=== PATIENT | male | born 1955 ===

== ENCOUNTER 2017-11-27 17:08 | Inpatient (IN) ==
[~2017-11-27 17:08] MED LIST: Etomidate Inj 40 MG/20 ML Vial IV.PUSH ONE; Lidocaine 2% 100 MG/5 ML Syringe IV.PUSH ONE; Midazolam Inj 5 MG/ML 1 ML Vial IV.PUSH ONE; Succinylcholine Inj 100 MG/5 ML Syringe IV.PUSH ONE
[2017-11-27] MEDS ORDERED: Propofol 1000 mg/100 ml Inj 1,000 MG/100 ML BOTTLE ONE (17:19)
[2017-11-27] MEDS ORDERED: Post-op Orders (for Pharmacy) OTHER ONE (17:25)
[2017-11-27] MEDS ORDERED: Naloxone Inj 0.4 MG/ML Vial IV.PUSH PRN (17:25)
[2017-11-27] MEDS ORDERED: Bisacodyl 10 MG Supp RECTAL PRN (17:25)
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
[2017-11-27] MEDS ORDERED: fentaNYL 10 mcg/mL Premix Drip 2,500 MCG/250 ML BAG IV.SIG PRN (17:29)
[2017-11-27 17:34] LABS: Baso # (Auto) 0.1 th/mm3 (0.0-0.2); Baso % (Auto) 0.6 % (0.0-2.0); Eos # (Auto) 0.3 th/mm3 (0.0-0.4); Eos % (Auto) 2.5 % (0.0-4.0); Hematocrit 42.2 % (39.0-51.0); Hemoglobin 14.2 gm/dL (13.0-17.0); Lymph % (Auto) 25.4 % (9.0-44.0); Mean Corpuscular HGB Conc 33.6 % (32.0-36.0); Mean Corpuscular Volume 89.4 fL (80.0-100.0); Mean Platelet Volume 7.8 fL (7.0-11.0); Mono % (Auto) 8.1 % (0.0-8.0); Neut # (Auto) 7.5 th/mm3 (1.8-7.7); Neut % (Auto) 63.4 % (16.0-70.0); Platelet Count 275 th/mm3 (150-450); Red Blood Count 4.72 mil/mm3 (4.50-5.90); Red Cell Distribution Width 13.4 % (11.6-17.2); White Blood Count 11.8 th/mm3 (4.0-11.0)
[2017-11-27 17:44] LABS: Activated Partial Thrombo Time 21.4 sec (24.3-30.1); Prothrombin Time 10.4 sec (9.8-11.6)
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
[2017-11-27] MEDS ORDERED: levETIRAcetam 500mg/100mL Inj 100 ML IV.SIG SCH (18:00)
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
[2017-11-27] MEDS: Propofol 1000 mg/100 ml Inj 1,000 MG/100 ML BOTTLE IV.CONT PRN (19:00)
[2017-11-27] MEDS ORDERED: ceFAZolin Inj 2,000 MG in Sodium Chlor 0.9% Inj 100 ML IV.SIG ONE (19:00)
[2017-11-27] MEDS: Pantoprazole Inj 40 MG Vial IV.PUSH SCH (19:08)
[2017-11-27] MEDS: Sod Chloride 0.9% Inj 1,000 ML IV.CONT SCH (19:31)
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
[2017-11-27 20:12] LABS: ABG PCO2 36 mmHg (38-42); ABG PO2 162 mmHg (61-120)
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
--- NOTE | 2017-11-27 22:20 | MP ---
cc: Alvin Saldana MD DATE OF OPERATION: 11/27/2017 PREOPERATIVE DIAGNOSIS: Massive head trauma, ventilatory dependence. POSTOPERATIVE DIAGNOSIS: Massive head trauma, ventilatory dependence. PROCEDURE PERFORMED: Triple lumen placement left jugular. SURGEON: Alvin Saldana MD ANESTHESIA: Xylocaine and sedation. ESTIMATED BLOOD LOSS: 5 mL DESCRIPTION OF PROCEDURE: The patient was prepped and draped in usual fashion. The area was infiltrated with 1% Xylocaine. Needle was inserted left subclavian the left subclavian area, however, due to the previous clavicular fracture, I could not pass the needle between the clavicle and the first rib, so this approach was abandoned. The area is now infiltrated with 1% Xylocaine and junction of the sternocleidomastoid head, and then needle inserted in the left jugular vein. Through the needle, the J-wire is guided. Over the J-wire, a dilator and triple lumen are placed. The triple lumen is sutured in place with 2-0 silk. Chest x-ray pending. MD MELANIE Bar/paco , 07:47 PM , 07:51 PM
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
[2017-11-28] MEDS: Senna/Docusate Sodium 8.6/50 MG Tablet PO SCH ×3 (01:06→21:20)
[2017-11-28] MEDS: Propofol 1000 mg/100 ml Inj 1,000 MG/100 ML BOTTLE IV.CONT PRN ×5 (02:19→23:14)
[2017-11-28] MEDS ORDERED: Sod Chloride 0.9% Inj 2,000 ML IV.SIG ONE (04:00)
[2017-11-28] MEDS: Sod Chloride 0.9% Inj 1,000 ML IV.CONT SCH ×3 (05:32→18:21)
[2017-11-28] MEDS ORDERED: Potassium Chloride 25 MEQ Effervescent Tablet PO PRN (06:03)
[2017-11-28] MEDS ORDERED: Magnesium Sulfate Inj 2 GM in Sodium Chlor 0.9% Inj 96 ML IV.SIG PRN (06:03)
[2017-11-28] MEDS ORDERED: Potassium Chlor 20 mEq Premix 20 MEQ/100 ML PIGGYBACK IV.SIG PRN (06:03)
[2017-11-28] MEDS ORDERED: Sodium Phosphate Inj 30 MMOL in Sodium Chlor 0.9% Inj 250 ML IV.SIG PRN (06:03)
[2017-11-28] MEDS ORDERED: Magnesium Oxide 400 MG Tablet PO PRN (06:03)
[2017-11-28] MEDS ORDERED: Potassium Phosphate Inj 30 MMOL in Sodium Chlor 0.9% Inj 250 ML IV.SIG PRN (06:03)
[2017-11-28] MEDS ORDERED: Potassium Phosphate 500 MG Soluble Tablet PO PRN ×2 (06:03)
[2017-11-28] MEDS ORDERED: Magnesium Sulfate Inj 4 GM in Sodium Chlor 0.9% Inj 92 ML IV.SIG PRN (06:03)
[2017-11-28] MEDS ORDERED: Potassium Chlor 40 mEq Premix 40 MEQ/100 ML PIGGYBACK IV.SIG PRN ×2 (06:03)
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
[2017-11-28 06:25] LABS: ABG Base Excess -3.6 mmol/L (-2-2); ABG PCO2 36 mmHg (38-42); ABG PO2 109 mmHg (61-120)
--- NOTE | 2017-11-28 06:35 | XR ---
EXAM DATE: 11/28/2017 6:32 AM EDT AGE/SEX: 89 years / Male INDICATIONS: Evaluate for pneumothorax. CLINICAL DATA: This is the patient's initial encounter. Patient reports that signs and symptoms have been present for 1 day and indicates a pain score of Nonresponsive. MEDICAL/SURGICAL HISTORY: Non-responsive. Non-responsive. [place] [facility] [place]. . FINDINGS: The ET tube, NG tube and left subclavian line are in good position. The heart size is normal. The yosef gs are grossly clear. A pneumothorax is not seen. CONCLUSION: The tubes and lines are well placed. Electronically signed by: Carlos Mccain MD 11/28/2017 6:34 AM EDT
[2017-11-28] MEDS ORDERED: Lidocaine 1% Inj 50 ML Vial ONE (06:42)
[2017-11-28 06:59] LABS: Baso % (Auto) 0.2 % (0.0-2.0); Eos % (Auto) 0.1 % (0.0-4.0); Hematocrit 30.1 % (39.0-51.0); Hemoglobin 10.4 gm/dL (13.0-17.0); Lymph % (Auto) 8.7 % (9.0-44.0); Mean Corpuscular HGB Conc 34.6 % (32.0-36.0); Mean Corpuscular Hemoglobin 30.9 pg (27.0-34.0); Mean Corpuscular Volume 89.3 fL (80.0-100.0); Mean Platelet Volume 7.9 fL (7.0-11.0); Mono # (Auto) 1.1 th/mm3 (0.0-0.9); Mono % (Auto) 10.4 % (0.0-8.0); Neut # (Auto) 8.8 th/mm3 (1.8-7.7); Neut % (Auto) 80.6 % (16.0-70.0); Platelet Count 183 th/mm3 (150-450); Red Blood Count 3.37 mil/mm3 (4.50-5.90); Red Cell Distribution Width 13.2 % (11.6-17.2); White Blood Count 10.9 th/mm3 (4.0-11.0)
[2017-11-28 07:10] LABS: Carbon Dioxide 23.4 meq/L (21.0-32.0); Potassium 4.1 meq/L (3.5-5.1)
[2017-11-28 07:24] LABS: Total Protein 5.3 g/dL (6.4-8.2)
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
[2017-11-28] MEDS: Chlorhexidine 0.12% Oral Kit 15 ML UDC OROPHARYNG SCH ×2 (08:39→20:00)
[2017-11-28] MEDS: Oral Hygiene Kit OROPHARYNG SCH ×2 (12:19→16:20)
[2017-11-28] MEDS ORDERED: levETIRAcetam 500mg/100mL Inj 100 ML IV.SIG SCH (15:00)
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
[2017-11-28] MEDS: Pantoprazole Inj 40 MG Vial IV.PUSH SCH (18:21)
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
--- NOTE | 2017-11-28 18:38 | CT ---
EXAM DATE: 11/28/2017 6:24 PM EDT AGE/SEX: 62 years / Male INDICATIONS: Trauma bleed CLINICAL DATA: This is the patient's initial encounter. Patient reports that signs and symptoms have been present for 1 day and indicates a pain score of Nonresponsive. MEDICAL/SURGICAL HISTORY: Cardiovascular disease. Coronary artery stent. RADIATION DOSE: 11.24 CTDI (mGy) ; Combined studies COMPARISON: [facility], CTA HEAD W CONTRAST W 3D, 11/28/2017. . TECHNIQUE: Volumetric scanning was performed using a multirow detector CT scanner during bolus infus ion of 75 ml Omnipaque 350 (iohexol) nonionic water-soluble contrast as a cumulative dose for multip le exams. The data was postprocessed with a variety of visualization algorithms including full-volu me maximum intensity projection, multiplanar sliding thin-slab reformation, curved-planar reformation , and surface-rendering techniques. Using automated exposure control and adjustment of the mA and/or kV according to patient size, radiation dose was kept as low as reasonably achievable to obtain opti mal diagnostic quality images. DICOM format image data is available electronically for review and co mparison. Percent stenosis is calculated using the diameter of the stenotic region over the diameter of the nor mal distal internal carotid artery. FINDINGS: Aortic Arch: There is a three-vessel origin of the great vessels from the aorta. No evidence of ost ial narrowing Right Carotid: The common carotid artery is intact. The carotid bulb has a normal configuration wit hout ulceration or narrowing. The internal carotid artery lumen is smooth without stenosis. The ext ernal carotid artery is intact. Left Carotid: The common carotid artery is intact. The carotid bulb has a normal configuration with out ulceration or narrowing. The internal carotid artery lumen is smooth without stenosis. The exte rnal carotid artery is intact. Vertebrals: The vertebral arteries have a symmetric diameter. No stenotic lesions are seen. Miscellaneous: Subcentimeter hypodensities are identified in both lobes of the thyroid CONCLUSION: 1. Subcentimeter hypodensities in both lobes of the thyroid. Findings likely represent multinodular goiter. If clinically warranted, ultrasound could be performed for further characterization, however. 2. Otherwise negative. Arch and cervical vessels are patent with no significant stenosis. Electronically signed by: Young Corrales MD 11/28/2017 6:37 PM EDT
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
[2017-11-29] MEDS: Oral Hygiene Kit OROPHARYNG SCH ×4 (00:30→15:39)
[2017-11-29 04:06] LABS: Baso % (Auto) 0.3 % (0.0-2.0); Eos # (Auto) 0.1 th/mm3 (0.0-0.4); Eos % (Auto) 1.3 % (0.0-4.0); Hematocrit 28.9 % (39.0-51.0); Hemoglobin 9.9 gm/dL (13.0-17.0); Lymph # (Auto) 1.2 th/mm3 (1.0-4.8); Lymph % (Auto) 13.5 % (9.0-44.0); Mean Corpuscular HGB Conc 34.3 % (32.0-36.0); Mean Corpuscular Hemoglobin 30.7 pg (27.0-34.0); Mean Corpuscular Volume 89.5 fL (80.0-100.0); Mean Platelet Volume 7.7 fL (7.0-11.0); Mono # (Auto) 0.8 th/mm3 (0.0-0.9); Mono % (Auto) 8.8 % (0.0-8.0); Neut # (Auto) 6.8 th/mm3 (1.8-7.7); Neut % (Auto) 76.1 % (16.0-70.0); Platelet Count 164 th/mm3 (150-450); Red Blood Count 3.22 mil/mm3 (4.50-5.90); Red Cell Distribution Width 13.4 % (11.6-17.2); White Blood Count 8.9 th/mm3 (4.0-11.0)
[2017-11-29] MEDS: Propofol 1000 mg/100 ml Inj 1,000 MG/100 ML BOTTLE IV.CONT PRN ×4 (04:27→21:47)
[2017-11-29 04:30] LABS: Anion Gap 9 meq/L (5-15)
[2017-11-29 04:35] LABS: Blood Urea Nitrogen 8 mg/dL (7-18); Calcium 7.3 mg/dL (8.5-10.1); Carbon Dioxide 22.8 meq/L (21.0-32.0); Chloride 112 meq/L (98-107); Glomerular Filtration Rate Greater Than 89 mL/min (>89); Glucose,Random 97 mg/dL (74-106); Potassium 3.3 meq/L (3.5-5.1); Sodium 144 meq/L (136-145)
[2017-11-29 04:50] LABS: Total Protein 5.4 g/dL (6.4-8.2)
[2017-11-29 06:06] LABS: ABG Base Excess -1.6 mmol/L (-2-2); ABG PCO2 38 mmHg (38-42); ABG PO2 95 mmHg (61-120)
--- NOTE | 2017-11-29 06:06 | XR ---
EXAM DATE: 11/29/2017 5:49 AM EDT AGE/SEX: 62 years / Male INDICATIONS: Follow up trauma alert. Evaluate for pneumothorax. CLINICAL DATA: This is the patient's subsequent encounter. Patient reports that signs and symptoms h ave been present for 3 days and indicates a pain score of Nonresponsive. MEDICAL/SURGICAL HISTORY: Non-responsive. Non-responsive. COMPARISON: C, CHEST 1V SINGLE AP, 11/28/2017. . FINDINGS: The ET tube, NG tube, and left internal jugular central lines are well placed. The heart size is norm al. There is increased density at the medial right base. The left lung is grossly clear. A pneumothor ax is not seen. There continues to be a left-sided chest tube in place. CONCLUSION: Mild atelectasis or consolidation at the medial right base. Left chest tube without a pneumothorax seen. Electronically signed by: Carlos Mccain MD 11/29/2017 6:04 AM EDT
[2017-11-29] MEDS: fentaNYL 10 mcg/mL Premix Drip 2,500 MCG/250 ML BAG IV.SIG PRN (06:45)
[2017-11-29] MEDS: Sod Chloride 0.9% Inj 1,000 ML IV.CONT SCH ×2 (06:51→13:06)
[2017-11-29] MEDS: Chlorhexidine 0.12% Oral Kit 15 ML UDC OROPHARYNG SCH ×2 (08:30→20:56)
[2017-11-29] MEDS: Senna/Docusate Sodium 8.6/50 MG Tablet PO SCH ×2 (08:30→20:56)
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
--- NOTE | 2017-11-29 11:54 | MG ---
cc: Lars Vidal MD, PhD AKA:REINIER HURT EEG 18-2012 TECHNIQUE: A 17-channel EEG. DESCRIPTION: The background rhythm reveals slowing in the delta frequency as well as theta frequencies, ranging from 3 Hz to 6 Hz. Amplitude is roughly 20-30 microvolts. There are no epileptiform discharges. No lateralizing features are identified. There is occasional muscle artifact. Photic stimulation was done with no significant driving response. INTERPRETATION: Abnormal study consistent with a diffuse encephalopathy. Lars Vidal MD, PhD KATHERIN/surinder , 05:44 PM , 05:49 PM
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
[2017-11-29] MEDS: Pantoprazole Inj 40 MG Vial IV.PUSH SCH (18:17)
[2017-11-30] MEDS: Propofol 1000 mg/100 ml Inj 1,000 MG/100 ML BOTTLE IV.CONT PRN ×4 (05:00→22:54)
[2017-11-30 05:55] LABS: Baso % (Auto) 0.4 % (0.0-2.0); Eos # (Auto) 0.2 th/mm3 (0.0-0.4); Eos % (Auto) 2.1 % (0.0-4.0); Hematocrit 29.3 % (39.0-51.0); Hemoglobin 9.9 gm/dL (13.0-17.0); Lymph # (Auto) 1.1 th/mm3 (1.0-4.8); Lymph % (Auto) 12.6 % (9.0-44.0); Mean Corpuscular HGB Conc 33.9 % (32.0-36.0); Mean Corpuscular Hemoglobin 30.4 pg (27.0-34.0); Mean Corpuscular Volume 89.7 fL (80.0-100.0); Mean Platelet Volume 7.8 fL (7.0-11.0); Mono # (Auto) 0.7 th/mm3 (0.0-0.9); Mono % (Auto) 8.1 % (0.0-8.0); Neut # (Auto) 6.7 th/mm3 (1.8-7.7); Neut % (Auto) 76.8 % (16.0-70.0); Platelet Count 172 th/mm3 (150-450); Red Blood Count 3.26 mil/mm3 (4.50-5.90); Red Cell Distribution Width 12.9 % (11.6-17.2); White Blood Count 8.8 th/mm3 (4.0-11.0)
[2017-11-30 06:04] LABS: ABG Base Excess 0.3 mmol/L (-2-2); ABG PCO2 38 mmHg (38-42); ABG PO2 107 mmHg (61-120)
[2017-11-30 06:16] LABS: Anion Gap 8 meq/L (5-15); Blood Urea Nitrogen 9 mg/dL (7-18); Calcium 7.9 mg/dL (8.5-10.1); Carbon Dioxide 25.2 meq/L (21.0-32.0); Chloride 111 meq/L (98-107); Glomerular Filtration Rate Greater Than 89 mL/min (>89); Glucose,Random 122 mg/dL (74-106); Potassium 3.7 meq/L (3.5-5.1); Sodium 144 meq/L (136-145)
[2017-11-30] MEDS ORDERED: SODIUM CHLORIDE IV.SIG SCH (06:30)
[2017-11-30] MEDS ORDERED: SODIUM CHLOR 0.9% IV.SIG SCH (06:30)
[2017-11-30] MEDS: Oral Hygiene Kit OROPHARYNG SCH ×4 (07:32→17:40)
[2017-11-30] MEDS: Senna/Docusate Sodium 8.6/50 MG Tablet PO SCH ×2 (08:36→21:24)
[2017-11-30] MEDS: Chlorhexidine 0.12% Oral Kit 15 ML UDC OROPHARYNG SCH ×2 (08:36→21:24)
[2017-11-30] MEDS: Sod Chloride 0.9% Inj 1,000 ML IV.CONT SCH (12:41)
[2017-11-30] MEDS: Propranolol 10 MG Tablet PO SCH ×2 (13:28→21:24)
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
[2017-11-30] MEDS: Pantoprazole Inj 40 MG Vial IV.PUSH SCH (17:40)
[2017-11-30] MEDS: fentaNYL 10 mcg/mL Premix Drip 2,500 MCG/250 ML BAG IV.SIG PRN (17:42)
[2017-12-01] MEDS: Oral Hygiene Kit OROPHARYNG SCH ×4 (00:26→15:55)
[2017-12-01] MEDS ORDERED: Sod Chloride 0.9% Inj 1,000 ML IV.SIG SCH (00:30)
[2017-12-01] MEDS: Propofol 1000 mg/100 ml Inj 1,000 MG/100 ML BOTTLE IV.CONT PRN ×5 (02:19→21:13)
[2017-12-01 03:09] LABS: Baso % (Auto) 0.3 % (0.0-2.0); Eos # (Auto) 0.3 th/mm3 (0.0-0.4); Eos % (Auto) 3.1 % (0.0-4.0); Hematocrit 29.8 % (39.0-51.0); Hemoglobin 9.9 gm/dL (13.0-17.0); Lymph # (Auto) 1.3 th/mm3 (1.0-4.8); Lymph % (Auto) 14.8 % (9.0-44.0); Mean Corpuscular HGB Conc 33.1 % (32.0-36.0); Mean Corpuscular Volume 90.6 fL (80.0-100.0); Mono # (Auto) 0.7 th/mm3 (0.0-0.9); Mono % (Auto) 8.5 % (0.0-8.0); Neut # (Auto) 6.4 th/mm3 (1.8-7.7); Neut % (Auto) 73.3 % (16.0-70.0); Platelet Count 208 th/mm3 (150-450); Red Blood Count 3.29 mil/mm3 (4.50-5.90); Red Cell Distribution Width 13.5 % (11.6-17.2); White Blood Count 8.7 th/mm3 (4.0-11.0)
[2017-12-01 03:40] LABS: Anion Gap 6 meq/L (5-15); Blood Urea Nitrogen 10 mg/dL (7-18); Calcium 7.7 mg/dL (8.5-10.1); Carbon Dioxide 27.5 meq/L (21.0-32.0); Chloride 112 meq/L (98-107); Glomerular Filtration Rate Greater Than 89 mL/min (>89); Glucose,Random 115 mg/dL (74-106); Potassium 3.8 meq/L (3.5-5.1); Sodium 145 meq/L (136-145)
[2017-12-01] MEDS: Propranolol 10 MG Tablet PO SCH ×3 (05:33→21:12)
[2017-12-01 06:12] LABS: ABG Base Excess 0.2 mmol/L (-2-2); ABG PCO2 38 mmHg (38-42); ABG PO2 106 mmHg (61-120)
[2017-12-01] MEDS: Chlorhexidine 0.12% Oral Kit 15 ML UDC OROPHARYNG SCH ×2 (10:01→20:07)
[2017-12-01] MEDS: Senna/Docusate Sodium 8.6/50 MG Tablet PO SCH ×2 (10:02→20:13)
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
[2017-12-01] MEDS: Sod Chloride 0.9% Inj 1,000 ML IV.CONT SCH (15:14)
[2017-12-01] MEDS: Heparin - SQ 10,000 UNITS/ML Vial SQ SCH ×2 (15:14→21:12)
[2017-12-01] MEDS: fentaNYL 10 mcg/mL Premix Drip 2,500 MCG/250 ML BAG IV.SIG PRN (15:15)
[2017-12-01] MEDS: Pantoprazole Inj 40 MG Vial IV.PUSH SCH (17:56)
[2017-12-02] MEDS ORDERED: Sod Chloride 0.9% Inj 1,000 ML IV.SIG SCH (00:15)
[2017-12-02] MEDS: Vancomycin Inj 1,000 MG in Sodium Chlor 0.9% Inj 250 ML IV.SIG SCH (00:26)
[2017-12-02] MEDS: Oral Hygiene Kit OROPHARYNG SCH ×4 (01:12→17:50)
[2017-12-02] MEDS: Piperacil/Tazo 4.5 GM Premix 4.5 GM/100 ML BAG IV.SIG SCH ×4 (01:12→20:06)
[2017-12-02] MEDS: Propofol 1000 mg/100 ml Inj 1,000 MG/100 ML BOTTLE IV.CONT PRN ×6 (01:13→21:45)
[2017-12-02] MEDS ORDERED: Piperacil/Tazo 3.375 GM Premix 50 ML IV.SIG SCH (02:00)
[2017-12-02 04:39] LABS: Baso % (Auto) 0.2 % (0.0-2.0); Eos # (Auto) 0.1 th/mm3 (0.0-0.4); Eos % (Auto) 0.7 % (0.0-4.0); Hematocrit 27.6 % (39.0-51.0); Hemoglobin 9.1 gm/dL (13.0-17.0); Lymph # (Auto) 1.2 th/mm3 (1.0-4.8); Lymph % (Auto) 7.8 % (9.0-44.0); Mean Corpuscular HGB Conc 32.8 % (32.0-36.0); Mean Corpuscular Hemoglobin 29.9 pg (27.0-34.0); Mean Platelet Volume 7.9 fL (7.0-11.0); Mono # (Auto) 1.3 th/mm3 (0.0-0.9); Neut # (Auto) 12.2 th/mm3 (1.8-7.7); Neut % (Auto) 82.3 % (16.0-70.0); Platelet Count 201 th/mm3 (150-450); Red Blood Count 3.04 mil/mm3 (4.50-5.90); Red Cell Distribution Width 13.2 % (11.6-17.2); White Blood Count 14.8 th/mm3 (4.0-11.0)
[2017-12-02 05:05] LABS: Anion Gap 8 meq/L (5-15); Blood Urea Nitrogen 13 mg/dL (7-18); Calcium 7.4 mg/dL (8.5-10.1); Carbon Dioxide 27.1 meq/L (21.0-32.0); Chloride 109 meq/L (98-107); Glomerular Filtration Rate Greater Than 89 mL/min (>89); Glucose,Random 109 mg/dL (74-106); Potassium 3.8 meq/L (3.5-5.1); Sodium 144 meq/L (136-145)
[2017-12-02 05:22] LABS: Total Protein 5.4 g/dL (6.4-8.2)
[2017-12-02] MEDS: fentaNYL 10 mcg/mL Premix Drip 2,500 MCG/250 ML BAG IV.SIG PRN ×2 (05:35→15:49)
[2017-12-02] MEDS: Heparin - SQ 10,000 UNITS/ML Vial SQ SCH ×3 (05:36→21:55)
[2017-12-02] MEDS: Propranolol 10 MG Tablet PO SCH ×3 (05:36→21:55)
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
[2017-12-02] MEDS: Chlorhexidine 0.12% Oral Kit 15 ML UDC OROPHARYNG SCH ×2 (09:12→20:07)
[2017-12-02] MEDS ORDERED: Sod Chloride 0.9% Inj 1,000 ML IV.SIG ONE (09:43)
[2017-12-02] MEDS ORDERED: Bisacodyl 10 MG Supp RECTAL ONE (10:00)
[2017-12-02] MEDS: Senna/Docusate Sodium 8.6/50 MG Tablet PO SCH ×2 (10:36→20:07)
[2017-12-02] MEDS ORDERED: Sodium Chloride 23.4% Inj 120 MEQ in Syringe/Bag 1 EACH IV.SIG ONE ×2 (11:00→12:00)
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
[2017-12-02] MEDS ORDERED: Sodium Chloride 23.4% Inj 240 MEQ in Syringe/Bag 1 EACH IV.SIG ONE ×2 (13:00→18:00)
[2017-12-02] MEDS: Sod Chloride 0.9% Inj 1,000 ML IV.CONT SCH (13:07)
[2017-12-02] MEDS: Pantoprazole Inj 40 MG Vial IV.PUSH SCH (17:52)
--- NOTE | 2017-12-02 21:43 | MG ---
cc: Pedrito Bush MD ELECTROENCEPHALOGRAM RECORD NUMBER: [id number] DESCRIPTION: There is a 4 Hz theta activity with excessive myogenic artifact frequencies. Limited driving with photic stimulation and episodes of posturing and shivering. No clear epileptic correlation. There is a lot of myogenic high frequency artifact in the temporal region. Single lead EKG showing sinus rhythm and some premature contractions potentially. Some EEG variability reactivity. INTERPRETATION: Moderate encephalopathy. No epileptic activity. Clinical correlation. MD ASHTYN Garcia/cj , 09:10 PM , 09:15 PM
[2017-12-03] MEDS: Oral Hygiene Kit OROPHARYNG SCH ×4 (01:28→15:39)
[2017-12-03] MEDS: Vancomycin Inj 1,000 MG in Sodium Chlor 0.9% Inj 250 ML IV.SIG SCH (01:29)
[2017-12-03] MEDS: Propofol 1000 mg/100 ml Inj 1,000 MG/100 ML BOTTLE IV.CONT PRN ×7 (01:59→22:00)
[2017-12-03] MEDS: Piperacil/Tazo 4.5 GM Premix 4.5 GM/100 ML BAG IV.SIG SCH ×3 (02:54→13:30)
--- NOTE | 2017-12-03 04:19 | XR ---
EXAM DATE: 12/03/2017 4:10 AM EDT AGE/SEX: 62 years / Male INDICATIONS: Status post chest tube removal. CLINICAL DATA: This is the patient's subsequent encounter. Patient reports that signs and symptoms h ave been present for 1 week and indicates a pain score of Nonresponsive. MEDICAL/SURGICAL HISTORY: Non-responsive. Non-responsive. [place] [facility] [place]. . FINDINGS: A single AP view of the chest demonstrates worsening bibasilar consolidations. Heart is normal in siz e. Tip of the endotracheal tube approximately 4 cm from the dary. Nasogastric tube courses off the inferior margin of the film. A degenerative thoracic spine. CONCLUSION: Worsening bibasilar consolidations. Electronically signed by: Ezio Higgins MD 12/03/2017 4:17 AM EDT
[2017-12-03] MEDS: fentaNYL 10 mcg/mL Premix Drip 2,500 MCG/250 ML BAG IV.SIG PRN ×3 (04:20→22:02)
[2017-12-03 05:59] LABS: ABG Base Excess -2.5 mmol/L (-2-2); ABG PCO2 41 mmHg (38-42); ABG PO2 94 mmHg (61-120)
[2017-12-03] MEDS ORDERED: Bisacodyl 10 MG Supp RECTAL PRN (06:00)
[2017-12-03] MEDS: Propranolol 10 MG Tablet PO SCH ×3 (06:34→21:17)
[2017-12-03] MEDS: Heparin - SQ 10,000 UNITS/ML Vial SQ SCH ×3 (06:36→21:17)
[2017-12-03] MEDS ORDERED: Vancomycin Consult Pharmacy OTHER PRN (06:52)
[2017-12-03] MEDS: Chlorhexidine 0.12% Oral Kit 15 ML UDC OROPHARYNG SCH ×2 (08:39→20:38)
[2017-12-03] MEDS: Senna/Docusate Sodium 8.6/50 MG Tablet PO SCH ×2 (09:18→20:39)
[2017-12-03] MEDS ORDERED: Vancomycin Inj 2,000 MG in Sodium Chlor 0.9% Inj 500 ML IV.SIG SCH (11:00)
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
[2017-12-03 11:53] LABS: Baso % (Auto) 0.2 % (0.0-2.0); Eos # (Auto) 0.2 th/mm3 (0.0-0.4); Eos % (Auto) 1.7 % (0.0-4.0); Hematocrit 27.7 % (39.0-51.0); Hemoglobin 9.2 gm/dL (13.0-17.0); Lymph % (Auto) 7.9 % (9.0-44.0); Mean Corpuscular HGB Conc 33.2 % (32.0-36.0); Mean Corpuscular Hemoglobin 30.8 pg (27.0-34.0); Mean Corpuscular Volume 92.9 fL (80.0-100.0); Mean Platelet Volume 8.5 fL (7.0-11.0); Mono # (Auto) 1.2 th/mm3 (0.0-0.9); Mono % (Auto) 9.7 % (0.0-8.0); Neut # (Auto) 10.3 th/mm3 (1.8-7.7); Neut % (Auto) 80.5 % (16.0-70.0); Platelet Count 178 th/mm3 (150-450); Red Blood Count 2.98 mil/mm3 (4.50-5.90); Red Cell Distribution Width 14.3 % (11.6-17.2); White Blood Count 12.8 th/mm3 (4.0-11.0)
[2017-12-03 12:19] LABS: Anion Gap 10 meq/L (5-15); Blood Urea Nitrogen 21 mg/dL (7-18); Calcium 7.8 mg/dL (8.5-10.1); Carbon Dioxide 20.6 meq/L (21.0-32.0); Chloride 118 meq/L (98-107); Glomerular Filtration Rate Greater Than 89 mL/min (>89); Glucose,Random 126 mg/dL (74-106); Sodium 149 meq/L (136-145)
[2017-12-03] MEDS: Sod Chloride 0.9% Inj 1,000 ML IV.CONT SCH (13:30)
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
[2017-12-03] MEDS: Pantoprazole Inj 40 MG Vial IV.PUSH SCH (17:28)
[2017-12-03] MEDS: levoFLOXacin Liq 25 MG/ML 100 ML Bottle PO SCH (17:29)
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
[2017-12-04] MEDS: Propofol 1000 mg/100 ml Inj 1,000 MG/100 ML BOTTLE IV.CONT PRN ×4 (01:31→12:45)
[2017-12-04] MEDS: Oral Hygiene Kit OROPHARYNG SCH ×4 (04:00→16:37)
[2017-12-04] MEDS: Propranolol 10 MG Tablet PO SCH ×3 (05:22→21:34)
[2017-12-04] MEDS: Heparin - SQ 10,000 UNITS/ML Vial SQ SCH ×3 (05:22→21:34)
[2017-12-04 05:45] LABS: ABG Base Excess 1.8 mmol/L (-2-2); ABG PCO2 42 mmHg (38-42); ABG PO2 73 mmHg (61-120)
[2017-12-04] MEDS: Senna/Docusate Sodium 8.6/50 MG Tablet PO SCH ×2 (08:20→23:35)
[2017-12-04] MEDS: Chlorhexidine 0.12% Oral Kit 15 ML UDC OROPHARYNG SCH ×2 (08:20→21:35)
[2017-12-04] MEDS: levoFLOXacin Liq 25 MG/ML 100 ML Bottle PO SCH (08:20)
[2017-12-04] MEDS: fentaNYL 10 mcg/mL Premix Drip 2,500 MCG/250 ML BAG IV.SIG PRN (08:22)
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
[2017-12-04 10:15] LABS: Baso # (Auto) 0.1 th/mm3 (0.0-0.2); Baso % (Auto) 0.4 % (0.0-2.0); Eos # (Auto) 0.3 th/mm3 (0.0-0.4); Eos % (Auto) 2.6 % (0.0-4.0); Hematocrit 25.4 % (39.0-51.0); Hemoglobin 8.6 gm/dL (13.0-17.0); Lymph # (Auto) 1.4 th/mm3 (1.0-4.8); Mean Corpuscular HGB Conc 33.8 % (32.0-36.0); Mean Corpuscular Hemoglobin 30.3 pg (27.0-34.0); Mean Corpuscular Volume 89.7 fL (80.0-100.0); Mean Platelet Volume 8.5 fL (7.0-11.0); Mono # (Auto) 0.9 th/mm3 (0.0-0.9); Mono % (Auto) 7.5 % (0.0-8.0); Neut # (Auto) 8.8 th/mm3 (1.8-7.7); Neut % (Auto) 77.5 % (16.0-70.0); Platelet Count 227 th/mm3 (150-450); Red Blood Count 2.83 mil/mm3 (4.50-5.90); Red Cell Distribution Width 13.7 % (11.6-17.2); White Blood Count 11.4 th/mm3 (4.0-11.0)
[2017-12-04 10:39] LABS: Anion Gap 10 meq/L (5-15); Blood Urea Nitrogen 19 mg/dL (7-18); Chloride 113 meq/L (98-107); Glomerular Filtration Rate Greater Than 89 mL/min (>89); Glucose,Random 133 mg/dL (74-106); Potassium 3.2 meq/L (3.5-5.1); Sodium 149 meq/L (136-145)
--- NOTE | 2017-12-04 10:45 | CT ---
EXAM DATE: 12/04/2017 10:27 AM EDT AGE/SEX: 62 years / Male INDICATIONS: Trauma, follow up head injury CLINICAL DATA: This is the patient's initial encounter. Patient reports that signs and symptoms have been present for 4 - 6 days and indicates a pain score of Nonresponsive. MEDICAL/SURGICAL HISTORY: Non-responsive. Non-responsive. RADIATION DOSE: 47.65 CTDI (mGy) COMPARISON: [facility] – [place], CT HEAD W/O CONTRAST, 11/28/2017. . TECHNIQUE: CT of the head without contrast. Using automated exposure control and adjustment of the mA and/or kV according to patient size, radiation dose was kept as low as reasonably achievable to ob tain optimal diagnostic quality images. DICOM format image data is available electronically for revi ew and comparison. FINDINGS: Diffuse subarachnoid blood persists on the left with intraventricular blood. Minimal subdural is seen in the right orbital frontal region. Ventricles are small. Posterior fossa remains unremarkable. CONCLUSION: 1. Evolving subarachnoid and subdural blood as described above. Subdural blood right orbital frontal region stable in size. 2. Ventricular size is slightly smaller. . Electronically signed by: Max Ko MD 12/04/2017 10:44 AM EDT
[2017-12-04 11:26] LABS: Eosinophils 2 % (0-4); Lymphocytes 6 % (9-44); Monocytes 5 % (0-8); Myelocytes 2 % (0-0); Platelet Estimate Normal (Normal); Platelet Morphology Normal (Normal)
[2017-12-04] MEDS: Sod Chloride 0.9% Inj 1,000 ML IV.CONT SCH (12:44)
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
[2017-12-04] MEDS ORDERED: Potassium Chloride 25 MEQ Effervescent Tablet PO ONE (17:00)
[2017-12-04] MEDS: Pantoprazole Inj 40 MG Vial IV.PUSH SCH (17:08)
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
[2017-12-04] MEDS: Potassium Chlor 20 mEq Premix 20 MEQ/100 ML PIGGYBACK IV.SIG PRN ×2 (21:34→23:35)
[2017-12-04] MEDS ORDERED: Pharmacy Ordered Lab Info OTHER ONE (22:45)
[2017-12-05] MEDS: Potassium Chlor 20 mEq Premix 20 MEQ/100 ML PIGGYBACK IV.SIG PRN ×2 (02:32→04:17)
[2017-12-05] MEDS: Oral Hygiene Kit OROPHARYNG SCH ×4 (02:33→18:05)
--- NOTE | 2017-12-05 04:46 | XR ---
EXAM DATE: 12/05/2017 4:08 AM EDT AGE/SEX: 62 years / Male INDICATIONS: Shortness of breath CLINICAL DATA: This is the patient's subsequent encounter. Patient reports that signs and symptoms h ave been present for 1 week and indicates a pain score of Nonresponsive. MEDICAL/SURGICAL HISTORY: None. None. [place] [facility] [place]. . FINDINGS: 2 portable frontal views of the chest show an endotracheal tube with the tip approximately 5 cm proxi mal to the dary. Tip of nasogastric tube in the region of the antrum of the stomach. Bibasilar pare nchymal consolidations again noted and unchanged from the prior study. This is more pronounced on the left side. No effusions. Heart is normal in size. CONCLUSION: Unchanged bibasilar infiltrates. Electronically signed by: Ezio Higgins MD 12/05/2017 4:45 AM EDT
[2017-12-05 04:47] LABS: Baso % (Auto) 0.3 % (0.0-2.0); Eos % (Auto) 0.3 % (0.0-4.0); Hematocrit 27.1 % (39.0-51.0); Lymph # (Auto) 1.3 th/mm3 (1.0-4.8); Lymph % (Auto) 9.6 % (9.0-44.0); Mean Corpuscular HGB Conc 33.3 % (32.0-36.0); Mean Corpuscular Hemoglobin 30.2 pg (27.0-34.0); Mean Corpuscular Volume 90.7 fL (80.0-100.0); Mean Platelet Volume 8.5 fL (7.0-11.0); Mono % (Auto) 7.5 % (0.0-8.0); Neut # (Auto) 11.1 th/mm3 (1.8-7.7); Neut % (Auto) 82.3 % (16.0-70.0); Platelet Count 290 th/mm3 (150-450); Red Blood Count 2.99 mil/mm3 (4.50-5.90); Red Cell Distribution Width 13.8 % (11.6-17.2); White Blood Count 13.5 th/mm3 (4.0-11.0)
[2017-12-05 05:17] LABS: Anion Gap 9 meq/L (5-15); Blood Urea Nitrogen 25 mg/dL (7-18); Calcium 8.2 mg/dL (8.5-10.1); Carbon Dioxide 27.3 meq/L (21.0-32.0); Chloride 113 meq/L (98-107); Glomerular Filtration Rate Greater Than 89 mL/min (>89); Glucose,Random 143 mg/dL (74-106); Potassium 4.3 meq/L (3.5-5.1); Sodium 149 meq/L (136-145)
[2017-12-05] MEDS: Heparin - SQ 10,000 UNITS/ML Vial SQ SCH ×3 (06:51→21:45)
[2017-12-05] MEDS: Propranolol 10 MG Tablet PO SCH ×3 (06:52→21:46)
[2017-12-05 08:07] LABS: Lymphocytes 4 % (9-44); Metamyelocytes 1 % (0-1); Monocytes 5 % (0-8)
[2017-12-05 08:09] LABS: Platelet Estimate Normal (Normal); Platelet Morphology Normal (Normal)
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
[2017-12-05] MEDS: Chlorhexidine 0.12% Oral Kit 15 ML UDC OROPHARYNG SCH ×2 (09:33→21:44)
[2017-12-05] MEDS: levoFLOXacin Liq 25 MG/ML 100 ML Bottle PO SCH (09:34)
[2017-12-05] MEDS: Senna/Docusate Sodium 8.6/50 MG Tablet PO SCH ×2 (09:34→21:44)
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
[2017-12-05] MEDS: Pantoprazole Inj 40 MG Vial IV.PUSH SCH (18:05)
[2017-12-06] MEDS: Oral Hygiene Kit OROPHARYNG SCH ×4 (02:08→18:14)
[2017-12-06] MEDS: Heparin - SQ 10,000 UNITS/ML Vial SQ SCH ×3 (05:44→21:16)
[2017-12-06] MEDS: Propranolol 10 MG Tablet PO SCH ×3 (05:44→21:16)
[2017-12-06 05:51] LABS: Baso % (Auto) 0.2 % (0.0-2.0); Eos # (Auto) 0.1 th/mm3 (0.0-0.4); Eos % (Auto) 0.6 % (0.0-4.0); Hemoglobin 9.5 gm/dL (13.0-17.0); Lymph # (Auto) 1.5 th/mm3 (1.0-4.8); Lymph % (Auto) 11.2 % (9.0-44.0); Mean Corpuscular HGB Conc 32.8 % (32.0-36.0); Mean Corpuscular Hemoglobin 29.9 pg (27.0-34.0); Mean Corpuscular Volume 91.1 fL (80.0-100.0); Mean Platelet Volume 8.2 fL (7.0-11.0); Mono # (Auto) 1.3 th/mm3 (0.0-0.9); Mono % (Auto) 9.5 % (0.0-8.0); Neut # (Auto) 10.5 th/mm3 (1.8-7.7); Neut % (Auto) 78.5 % (16.0-70.0); Platelet Count 292 th/mm3 (150-450); Red Blood Count 3.18 mil/mm3 (4.50-5.90); Red Cell Distribution Width 14.1 % (11.6-17.2); White Blood Count 13.3 th/mm3 (4.0-11.0)
[2017-12-06 06:24] LABS: Anion Gap 8 meq/L (5-15); Blood Urea Nitrogen 30 mg/dL (7-18); Calcium 8.4 mg/dL (8.5-10.1); Carbon Dioxide 26.9 meq/L (21.0-32.0); Chloride 113 meq/L (98-107); Glomerular Filtration Rate Greater Than 89 mL/min (>89); Glucose,Random 123 mg/dL (74-106); Potassium 4.3 meq/L (3.5-5.1); Sodium 148 meq/L (136-145)
[2017-12-06 07:08] LABS: Lymphocytes 10 % (9-44); Metamyelocytes 2 % (0-1); Monocytes 7 % (0-8); Myelocytes 2 % (0-0); Platelet Estimate Normal (Normal); Platelet Morphology Normal (Normal); RBC Morphology Normal (Normal)
[2017-12-06] MEDS: Senna/Docusate Sodium 8.6/50 MG Tablet PO SCH ×2 (09:14→21:15)
[2017-12-06] MEDS: levoFLOXacin Liq 25 MG/ML 100 ML Bottle PO SCH (09:20)
[2017-12-06] MEDS: Chlorhexidine 0.12% Oral Kit 15 ML UDC OROPHARYNG SCH ×2 (09:21→21:14)
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
[2017-12-06] MEDS: Pantoprazole Inj 40 MG Vial IV.PUSH SCH (18:13)
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
[2017-12-07] MEDS: Oral Hygiene Kit OROPHARYNG SCH ×4 (00:23→17:25)
[2017-12-07] MEDS: Propranolol 10 MG Tablet PO SCH ×3 (06:22→21:13)
[2017-12-07] MEDS: Heparin - SQ 10,000 UNITS/ML Vial SQ SCH ×3 (06:22→21:13)
[2017-12-07 07:57] LABS: Baso % (Auto) 0.3 % (0.0-2.0); Eos # (Auto) 0.2 th/mm3 (0.0-0.4); Eos % (Auto) 1.3 % (0.0-4.0); Hematocrit 27.5 % (39.0-51.0); Lymph # (Auto) 1.7 th/mm3 (1.0-4.8); Lymph % (Auto) 11.6 % (9.0-44.0); Mean Corpuscular HGB Conc 32.5 % (32.0-36.0); Mean Corpuscular Hemoglobin 29.7 pg (27.0-34.0); Mean Corpuscular Volume 91.4 fL (80.0-100.0); Mean Platelet Volume 8.6 fL (7.0-11.0); Mono # (Auto) 1.4 th/mm3 (0.0-0.9); Mono % (Auto) 9.8 % (0.0-8.0); Neut # (Auto) 11.3 th/mm3 (1.8-7.7); Platelet Count 269 th/mm3 (150-450); Red Blood Count 3.01 mil/mm3 (4.50-5.90); Red Cell Distribution Width 13.9 % (11.6-17.2); White Blood Count 14.7 th/mm3 (4.0-11.0)
[2017-12-07 08:01] LABS: Anion Gap 8 meq/L (5-15); Blood Urea Nitrogen 29 mg/dL (7-18); Carbon Dioxide 26.8 meq/L (21.0-32.0); Chloride 107 meq/L (98-107); Glomerular Filtration Rate Greater Than 89 mL/min (>89); Glucose,Random 110 mg/dL (74-106); Potassium 4.3 meq/L (3.5-5.1); Sodium 142 meq/L (136-145)
[2017-12-07] MEDS: Chlorhexidine 0.12% Oral Kit 15 ML UDC OROPHARYNG SCH ×2 (08:12→20:33)
[2017-12-07] MEDS: levoFLOXacin Liq 25 MG/ML 100 ML Bottle PO SCH (08:13)
[2017-12-07] MEDS: Senna/Docusate Sodium 8.6/50 MG Tablet PO SCH ×2 (08:13→21:14)
[2017-12-07 09:23] LABS: Lymphocytes 10 % (9-44); Metamyelocytes 2 % (0-1); Monocytes 4 % (0-8); Tallied Nucleated RBC 1 (0-0)
[2017-12-07 09:24] LABS: Platelet Estimate Normal (Normal); Platelet Morphology Normal (Normal)
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
[2017-12-07] MEDS: Pantoprazole Inj 40 MG Vial IV.PUSH SCH (18:20)
[2017-12-08] MEDS: Oral Hygiene Kit OROPHARYNG SCH ×4 (00:22→17:03)
[2017-12-08] MEDS: Heparin - SQ 10,000 UNITS/ML Vial SQ SCH ×3 (05:20→21:12)
[2017-12-08] MEDS: Propranolol 10 MG Tablet PO SCH ×3 (05:20→21:12)
[2017-12-08] MEDS: levoFLOXacin Liq 25 MG/ML 100 ML Bottle PO SCH (08:12)
[2017-12-08] MEDS: Chlorhexidine 0.12% Oral Kit 15 ML UDC OROPHARYNG SCH ×2 (08:12→21:12)
[2017-12-08] MEDS: Senna/Docusate Sodium 8.6/50 MG Tablet PO SCH ×2 (08:12→21:12)
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
--- NOTE | 2017-12-08 13:15 | ECG ---
Date Performed: 12/08/2017 Time Performed: 04:46:46 PTAGE: 62 years EKG: Sinus rhythm with bigeminal PVCs. Poor R wave progression - probable normal variant Low QRS voltages in precordia l leads Abnormal ECG NO PREVIOUS TRACING DOCTOR: Aj Fink Interpretating Date/Time 12/08/2017 13:10:57
[2017-12-08] MEDS: Pantoprazole Inj 40 MG Vial IV.PUSH SCH (18:14)
[2017-12-09] MEDS: Oral Hygiene Kit OROPHARYNG SCH ×4 (01:37→16:32)
[2017-12-09 04:36] LABS: Baso % (Auto) 0.2 % (0.0-2.0); Eos # (Auto) 0.3 th/mm3 (0.0-0.4); Eos % (Auto) 2.1 % (0.0-4.0); Hematocrit 28.1 % (39.0-51.0); Hemoglobin 9.4 gm/dL (13.0-17.0); Lymph # (Auto) 1.5 th/mm3 (1.0-4.8); Lymph % (Auto) 10.7 % (9.0-44.0); Mean Corpuscular HGB Conc 33.6 % (32.0-36.0); Mean Corpuscular Hemoglobin 30.2 pg (27.0-34.0); Mean Corpuscular Volume 89.9 fL (80.0-100.0); Mean Platelet Volume 8.6 fL (7.0-11.0); Mono # (Auto) 1.1 th/mm3 (0.0-0.9); Mono % (Auto) 7.6 % (0.0-8.0); Neut # (Auto) 11.5 th/mm3 (1.8-7.7); Neut % (Auto) 79.4 % (16.0-70.0); Platelet Count 303 th/mm3 (150-450); Red Blood Count 3.12 mil/mm3 (4.50-5.90); Red Cell Distribution Width 13.4 % (11.6-17.2); White Blood Count 14.4 th/mm3 (4.0-11.0)
[2017-12-09 05:23] LABS: Alanine Aminotransferase 118 U/L (12-78); Albumin 2.3 g/dL (3.4-5.0); Anion Gap 8 meq/L (5-15); Aspartate Aminotransferase 35 U/L (15-37); Blood Urea Nitrogen 21 mg/dL (7-18); Calcium 7.9 mg/dL (8.5-10.1); Carbon Dioxide 24.7 meq/L (21.0-32.0); Chloride 102 meq/L (98-107); Glomerular Filtration Rate Greater Than 89 mL/min (>89); Glucose,Random 111 mg/dL (74-106); Potassium 4.5 meq/L (3.5-5.1); Sodium 135 meq/L (136-145)
[2017-12-09 05:26] LABS: Alkaline Phosphatase 140 U/L (45-117); Total Protein 6.1 g/dL (6.4-8.2)
[2017-12-09] MEDS: Propranolol 10 MG Tablet PO SCH (05:51)
[2017-12-09] MEDS: Heparin - SQ 10,000 UNITS/ML Vial SQ SCH (05:52)
[2017-12-09 07:00] LABS: Eosinophils 3 % (0-4); Lymphocytes 13 % (9-44); Metamyelocytes 1 % (0-1); Monocytes 1 % (0-8); Platelet Estimate Normal (Normal); Platelet Morphology Normal (Normal)
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
[2017-12-09] MEDS: Chlorhexidine 0.12% Oral Kit 15 ML UDC OROPHARYNG SCH ×2 (08:35→20:58)
[2017-12-09] MEDS: levoFLOXacin Liq 25 MG/ML 100 ML Bottle PO SCH (11:31)
[2017-12-09] MEDS: Senna/Docusate Sodium 8.6/50 MG Tablet PO SCH (11:31)
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
[2017-12-09] MEDS ORDERED: Bisacodyl 10 MG Supp RECTAL PRN (14:53)
[2017-12-09] MEDS ORDERED: Morphine Sulfate Inj 8 MG/ML Vial IV.PUSH ONE (14:53)
[2017-12-09] MEDS ORDERED: Hyoscyamine Inj 0.5 MG/ML Ampul IV.PUSH PRN (14:53)
[2017-12-09] MEDS ORDERED: Morphine Sulfate Inj 8 MG/ML Vial IV.PUSH PRN (14:53)
[2017-12-09] MEDS ORDERED: Morphine Inj 4 MG/ML Vial IV.PUSH ONE (14:53)
[2017-12-09] MEDS ORDERED: Hyoscyamine Inj 0.5 MG/ML Ampul IV.PUSH ONE (14:53)
[2017-12-09] MEDS: Morphine Inj 4 MG/ML Vial IV.PUSH PRN ×4 (16:54→20:47)
[2017-12-09] MEDS: Morphine Inj 4 MG/ML Vial IV.PUSH SCH ×2 (19:46→23:25)
[2017-12-10] MEDS: Oral Hygiene Kit OROPHARYNG SCH ×4 (00:41→17:27)
[2017-12-10] MEDS: Morphine Inj 4 MG/ML Vial IV.PUSH SCH ×5 (01:59→18:36)
[2017-12-10] MEDS: Chlorhexidine 0.12% Oral Kit 15 ML UDC OROPHARYNG SCH (08:00)
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
[2017-12-10] MEDS: Morphine Sulfate Inj 2 MG/ML Vial IV.PUSH SCH ×2 (14:17→17:27)
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
== END 2017-12-10 19:52 | disposition hospice, inpatient (51) ==
LOC: NEPI 17:08 → NEDA 17:31 → EDBD 17:31 → N03 17:51
PROVIDERS: ADMIT Family Medicine; ATTEND Family Medicine